=== PATIENT | female | born 1945 | race Caucasian/White ===

== ENCOUNTER 2017-02-26 08:49 | Outpatient (CLI) | payer MEDICARE ==
[~2017-02-26] VITALS: Ht 165.1 cm; Wt 46.8 kg
[~2017-02-26 08:49] MED LIST: FUROSEMIDE20 MG PO; HYDROCODONE-APA1 TAB PO; K-TAB10 MEQ PO; KLONOPIN0.5 MG PO; LEVOTHYROXINE100 MCG PO; ROBAXIN500 MG PO; SOMA250 MG PO; TIROSINT88 MCG PO
[2017-02-26] MEDS ORDERED: CATAPRES0.1 MG PO (10:11)
[2017-02-26 10:17] LABS: BASOPHILS 1.7 % (0.0-2.0); EOSINOPHILS 2.3 % (0-7); HEMATOCRIT 36.8 % (36.0-48.0); HEMOGLOBIN 11.5 g/dL (12-16); MCH 31.1 pg (26.0-34.0); MCHC 31.3 g/dL (31.0-37.0); MCV 99.5 fL (80.0-100.0); MEAN PLATELET VOLUME 8.7 fL (7.4-10.4); MONOCYTES 9.6 % (2-11); NEUTROPHILS 54.4 % (40-80); RDW 12.9 % (11.5-14.5)
[2017-02-26 10:21] VITALS: BP 183/84; Ht 165.1 cm; Wt 46.8 kg
[2017-02-26 10:30] LABS: PLATELET COUNT 255 10x3/uL (130-400)
[2017-02-26 10:31] LABS: ANION GAP 9.3 mmol/L (8-16); CALCIUM 9.1 mg/dL (8.5-10.1); CARBON DIOXIDE 32.4 mmol/L (21.0-32.0); CREATININE - SERUM 0.8 mg/dL (0.6-1.3); POTASSIUM - SERUM 4.7 mmol/L (3.5-5.1)
[2017-02-26 10:33] LABS: APTT 33.7 SECONDS (22.8-39.4); INR 1.13 (0.85-1.17); PROTIME 14.4 SECONDS (11.6-15.0)
--- NOTE | 2017-02-26 12:05 | NUR ---
1200-RECD FROM INTERVENTIONAL RADIOLOGY. AROUSES EASILY. IV PATENT. L HIP DRESSING DRY AND INTACT. DENIES PAIN. RESP WITH EASE.
--- NOTE | 2017-02-26 17:48 | NUR ---
1300 REPORT TO FRANK RAYMOND RN, CARE TURNED OVER TO HER AT THIS TIME.
== END 2017-02-26 13:35 | disposition home or self-care (01) ==
LOC: D.OPS 08:49 → D.CT 11:00 → D.OPS 13:35
PROVIDERS: General Practice
DX: D72.819 Decreased white blood cell count, unspecified (principal); M15.9 Polyosteoarthritis, unspecified; E03.9 Hypothyroidism, unspecified

== ENCOUNTER 2017-12-10 18:19 | Inpatient (IN) | payer MEDICARE ==
[~2017-12-10] VITALS: Ht 165.1 cm; Wt 47.7 kg
--- NOTE | ~2017-12-10 | PN ---
PATIENT:ROB PICKENS MEDICAL RECORD: [id number] LOCATION:[place] Mendez112 ADMISSION DATE: 12/10/17 PROGRESS NOTE DATE OF SERVICE: 12/12/2017 SUBJECTIVE: The patient's case was discussed with staff. She has no new complaint. OBJECTIVE: The patient is in good behavioral control with limited insight about her condition. She complains of back pain. ASSESSMENT: No change in diagnoses. PLAN: Current medicines and therapies have been reviewed. Her long-term prognosis is guarded. TRANSINT:[id number] Voice Confirmation ID: [id number] DOCUMENT ID: [id number] BETSY BURGER MD at 1338 CC: [id number] DICTATION DATE: 12/12/17 1313 ENDOCRINOLOGIST: 12/12/17 1332 ADM IN [place] [address] [place] [address]
--- NOTE | ~2017-12-10 | PN ---
PATIENT:ROB PICKENS MEDICAL RECORD: [id number] LOCATION:[facility] Mendez112 ADMISSION DATE: 12/10/17 PROGRESS NOTE DATE OF SERVICE: 12/23/2017 SUBJECTIVE: No new complaint. OBJECTIVE: The patient is doing considerably better. Due to her improvement in orientation and responsiveness, she will be retested by Dr. Bob today. On exam, mood is euthymic. Affect is appropriate. Speech is fairly fluent. Content of thought unchanged. Sensorium unchanged. ASSESSMENT: No change in diagnosis. PLAN: 1. Continue current medication. 2. Continue supportive therapy. TRANSINT:[id number] Voice Confirmation ID: [id number] DOCUMENT ID: [id number] NOÉ WESTBROOK III, MD at 0657 CC: [id number] DICTATION DATE: 12/23/17 1136 PLANT AND INSTRUMENT ENGINEER: 12/23/17 1158 ADM IN [place] [id number] [place] [id number]
--- NOTE | ~2017-12-10 | PSY ---
PATIENT NAME:ROB PICKENS MEDICAL RECORD: [id number] : 41 LOCATION:[place] Andrea1124 ADMISSION DATE: 12/10/17 ACCOUNT: [id number] PSYCHIATRIC EVALUATION DATE OF EVALUATION: 12/11/17 INITIAL PSYCHIATRIC WORKUP IDENTIFYING DATA: This is the first Half-Way admission and probably the first psychiatric hospitalization for this 72-year-old single white female. HISTORY OF PRESENT ILLNESS: This patient was transferred here from the [facility]. The patient had recently, according to her daughter, been showing markedly worsened depression and anxiety. On exam today, the patient states that she has several things that bother her. She begins by stating that there have been some changes at her work that have left her flustered and confused. She also mentions that her daughter has moved in with her. The patient evidently works at [employer], but her hours are being restricted (this is based solely on the information the patient gave me). The patient has a past history of CVA and does have some cognitive deficits according to history. Because of worsening depression and anxiety, the patient is now admitted. PAST MEDICAL HISTORY: Significant for cerebrovascular accident in the past. The patient also has an old history of osteoarthritis, cardiac arrhythmias, hypertension, and hypothyroidism. MEDICATION: At the time of admission included levothyroxine 100 mcg daily (this was decreased to 75 mcg daily after admission). Also, vitamin D supplements, potassium replacement, Lasix 20 mg daily, and p.r.n. benzodiazepines. FAMILY HISTORY: Noncontributory. SOCIAL HISTORY: The patient is a former smoker. She does not have a history of substance abuse or alcohol difficulties. She is a . She has 2 children, 1 of her daughter lives with her. She worked in the past in an accounting department at a local business. She says she has worked for [employer] for the last 26 years. ALLERGIES: INCLUDE SYNTHROID (NOT LEVOTHYROXINE) AND PENICILLIN DERIVATIVES. MENTAL STATUS: On interview, the patient is very pleasant and charming. She is extremely polite during the course of the interview. She makes good eye contact. Mood is slightly anxious and worried. Affect is somewhat constricted. Speech is slow in production and rate, but otherwise fluent. Content of thought is negative for suicidal ideation or psychosis. On sensorium testing, the patient is oriented to person and place. She correctly identifies the month, but is little unsure of the exact date. She knows that today is . Remote recall appears to be intact. Intermediate and short-term recall does show some deficits. DIAGNOSTIC IMPRESSION: AXIS I: Probable early vascular dementia with secondary depressive features and anxiety. AXIS II: No diagnosis. AXIS III: History of cerebrovascular accident, hypothyroidism, hypertension, and osteoarthritis. AXIS IV: Moderate. AXIS V: 34. PLAN: 1. The patient is admitted for further medical and psychiatric workup. 2. Diet and activities as tolerated. 3. Coordinated with the patient and with family regarding aftercare at the time of discharge. TRANSINT:[id number] Voice Confirmation ID: [id number] DOCUMENT ID: [id number] NOÉ WESTBROOK III, MD at 1506 CC: [id number] DICTATION DATE: 12/11/17 1133 FOREIGN EXCHANGE CLERK: 12/11/17 1159 ADM IN [facility] [address] [place] [id number]
--- NOTE | ~2017-12-10 | PN ---
PATIENT:ROB PICKENS MEDICAL RECORD: [id number] LOCATION:[place] Mendez112 ADMISSION DATE: 12/10/17 PROGRESS NOTE DATE OF SERVICE: 12/22/2017 SUBJECTIVE: The patient is showing significant improvement. This morning, she was eating breakfast well. She is interacting much better with staff. On exam, the patient's mood was pleasant. Affect was more appropriate and congenial. Speech is more fluent. Content of thought is negative for overt psychosis or suicidality. On sensorium testing, the patient was oriented to time, place and person. ASSESSMENT: No change in diagnosis. PLAN: 1. Maintain Lexapro 10 mg daily. 2. Continue other medications. 3. Continue supportive therapy. TRANSINT:[id number] Voice Confirmation ID: [id number] DOCUMENT ID: [id number] NOÉ WESTBROOK III, MD at 0632 CC: [id number] DICTATION DATE: 12/22/17 0935 SCREW CUTTER: 12/22/17 1157 ADM IN [place] [id number] [place] [id number]
--- NOTE | ~2017-12-10 | PN ---
PATIENT:ROB PICKENS MEDICAL RECORD: [id number] LOCATION:[place] Cosby ADMISSION DATE: 12/10/17 PROGRESS NOTE DATE OF SERVICE: 12/20/2017 SUBJECTIVE: No new complaint. OBJECTIVE: The patient continues to appear sedated. She is slow to respond to staff. She is taking her medications as prescribed, but oral intake remains poor. On exam, mood is dysphoric. Affect is very constricted. Speech is minimal. Content of thought focuses on somatic concerns. Sensorium continues to show profound deficits as described above. PRIMARY DIAGNOSIS: Changed Alzheimer's dementia. SECONDARY DIAGNOSIS: Depression. PLAN: 1. We will discontinue Klonopin. 2. Reduce Lexapro to 10 mg daily. 3. Maintain other medications and close observation as well as supportive therapy. TRANSINT:[id number] Voice Confirmation ID: [id number] DOCUMENT ID: [id number] NOÉ WESTBROOK III, MD at 0848 CC: [id number] DICTATION DATE: 12/20/17 0805 USED CAR SALESPERSON: 12/20/17 1313 ADM IN [facility] [address] [place] [id number]
--- NOTE | ~2017-12-10 | PN ---
PATIENT:ROB PICKENS MEDICAL RECORD: [id number] LOCATION:[place] Mendez112 ADMISSION DATE: 12/10/17 PROGRESS NOTE DATE OF SERVICE: 12/19/2017 SUBJECTIVE: No new complaint. OBJECTIVE: The patient has appeared somewhat sedated. Klonopin will be reduced. Staff has been in communication with the daughter regarding her recommendations. On exam, mood is for the most part euthymic. Affect is very reserved. Speech is low in volume and slow in production and rate. Content of thought focuses on somatic concerns. Sensorium is unchanged. ASSESSMENT: No change in diagnosis. PLAN: 1. Continue present medications. 2. Continue supportive therapy. TRANSINT:[id number] Voice Confirmation ID: [id number] DOCUMENT ID: [id number] NOÉ WESTBROOK III, MD at 0727 CC: [id number] DICTATION DATE: 12/19/17 1105 SHIPYARD PAINTING SUPERVISOR: 12/19/17 1126 ADM IN [place] [address] [place] [address]
--- NOTE | ~2017-12-10 | PN ---
PATIENT:ROB PICKENS MEDICAL RECORD: [id number] LOCATION:TOD[place]ank Mendez112 ADMISSION DATE: 12/10/17 PROGRESS NOTE DATE OF SERVICE: 12/15/2017 SUBJECTIVE: The patient states that she still does not feel very energetic. OBJECTIVE: The patient has had very poor oral intake. She has been started on Megace and is taking this on a routine basis. Depressive symptoms remain prominent. On exam, mood is dysphoric. Affect constricted. Speech is low in volume. Content of thought is negative for overt psychosis. Sensorium shows no change. ASSESSMENT: No change in diagnosis. PLAN: 1. We will advance Lexapro to 20 mg daily. 2. Neuropsychological testing. 3. Continue supportive therapy. TRANSINT:[id number] Voice Confirmation ID: [id number] DOCUMENT ID: [id number] NOÉ WESTBROOK III, MD at 1002 CC: [id number] DICTATION DATE: 12/15/17 1115 FUNERAL CAR CHAUFFEUR: 12/15/17 1349 ADM IN [place] [id number] [place] [id number]
--- NOTE | ~2017-12-10 | PN ---
PATIENT:ROB PICKENS MEDICAL RECORD: [id number] LOCATION:[place] Mendez112 ADMISSION DATE: 12/10/17 PROGRESS NOTE DATE OF SERVICE: 12/25/2017 SUBJECTIVE: The patient's case was discussed with staff. She has no new complaint. OBJECTIVE: The patient denies intent to harm herself or others. She tolerates her medicines well. ASSESSMENT: No change in diagnoses. PLAN: Current medicines and therapies have been reviewed and will be maintained. Long-term prognosis is guarded. TRANSINT:[id number] Voice Confirmation ID: [id number] DOCUMENT ID: [id number] BETSY BURGER MD at 1024 CC: [id number] DICTATION DATE: 12/25/17 1036 HAY CHOPPER: 12/25/17 1113 DIS IN 12/25/17 [facility] [address] [place] [address]
--- NOTE | ~2017-12-10 | PN ---
PATIENT:ROB PICKENS MEDICAL RECORD: [id number] LOCATION:[place] Mendez112 ADMISSION DATE: 12/10/17 PROGRESS NOTE DATE OF SERVICE: 12/13/2017 SUBJECTIVE: The patient continues to complain of nervousness. OBJECTIVE: On interview, the patient is pleasant, but affect is very reserved. Mood is slightly anxious. Speech is low in volume. Content of thought tends to focus on somatic concerns. Sensorium shows no change. ASSESSMENT: No change in diagnosis. PLAN: 1. We will institute routine Klonopin. 2. We will get neuropsychological testing with Dr. Bob. 3. Continue supportive therapy. TRANSINT:[id number] Voice Confirmation ID: [id number] DOCUMENT ID: [id number] NOÉ WESTBROOK III, MD at 1830 CC: [id number] DICTATION DATE: 12/13/17 1144 FORENSIC DOCUMENT EXAMINER: 12/13/17 1600 ADM IN [facility] [address] [place] [address]
--- NOTE | ~2017-12-10 | PN ---
PATIENT:ROB PICKENS MEDICAL RECORD: [id number] LOCATION:[place] Mendez112 ADMISSION DATE: 12/10/17 PROGRESS NOTE DATE OF SERVICE: 12/17/2017 SUBJECTIVE: No new complaint. OBJECTIVE: The patient is slightly more alert today. She did undergo neuropsychological testing with Dr. Bob. She scored only 5/30 on the [facility] Mental Status exam, which indicates a very profound and severe dementia. The patient's daughter did talk with staff and asked whether the patient should continue to be allowed to drive and to work at [facility] [employer]. Based on current observation and testing, the answer is definitely no. In addition, the daughter shared the fact that the patient had been taking probably excessive amounts of narcotics prior to admission. The patient will be monitored for withdrawal. On exam, mood is dysphoric. Affect is rather constricted. Speech tends to be low in volume. Content of thought focuses primarily on somatic concerns. Sensorium shows no change. ASSESSMENT: No change in diagnosis. PLAN: 1. Maintain current medication. 2. Continue supportive therapy. TRANSINT:[id number] Voice Confirmation ID: [id number] DOCUMENT ID: [id number] NOÉ WESTBROOK III, MD at 1045 CC: [id number] DICTATION DATE: 12/17/171126 PURCHASING SUPERVISOR: 12/17/17 1337 ADM IN [place] [id number] [place] [id number]
--- NOTE | ~2017-12-10 | PN ---
PATIENT:ROB PICKENS MEDICAL RECORD: [id number] LOCATION:[place] Mendez112 ADMISSION DATE: 12/10/17 PROGRESS NOTE DATE OF SERVICE: 12/18/2017 SUBJECTIVE: No new complaint. OBJECTIVE: As mentioned, the patient had done very poorly on the [facility] Mental Status exam scoring 5 out of a possible 30. The patient was informed today that she should not drive nor attempt to return to work under the circumstances. Family is concerned about her excessive use of [place]. She will be changed to tramadol. On exam, mood is dysphoric. Affect is reserved and constricted. Speech is slow in rate. Content of thought is negative for overt psychosis. Sensorium shows no change. ASSESSMENT: AXIS I: Alzheimer dementia, secondary depression. AXIS II: No diagnosis. PLAN: 1. Continue all current medications. 2. Continue supportive therapy. TRANSINT:[id number] Voice Confirmation ID: [id number] DOCUMENT ID: [id number] NOÉ WESTBROOK III, MD at 0510 CC: [id number] DICTATION DATE: 12/18/17 1151 STORES NAVAL: 12/18/17 [address] [facility] [address] [place] [address]
--- NOTE | ~2017-12-10 | PN ---
PATIENT:ROB PICKENS MEDICAL RECORD: [id number] LOCATION:[place] Mendez112 ADMISSION DATE: 12/10/17 PROGRESS NOTE DATE OF SERVICE: 12/16/2017 SUBJECTIVE: No new complaint. OBJECTIVE: The patient is undergoing testing with Dr. Bob today. She has been taking medication as prescribed. She is eating better. On exam, mood remains dysphoric. Affect is constricted. Speech is fairly fluent. Content of thought unchanged. Sensorium unchanged. ASSESSMENT: No change in diagnosis. PLAN: 1. Maintain current medication. 2. Continue supportive therapy. TRANSINT:[id number] Voice Confirmation ID: [id number] DOCUMENT ID: [id number] NOÉ WESTBROOK III, MD at 1013 CC: [id number] DICTATION DATE: 12/16/17 1059 COMB MACHINE OPERATOR: 12/16/17 1240 ADM IN [place] [address] [place] [id number]
--- NOTE | ~2017-12-10 | PN ---
PATIENT:ROB PICKENS MEDICAL RECORD: [id number] LOCATION:[place] Mendez112 ADMISSION DATE: 12/10/17 PROGRESS NOTE DATE OF SERVICE: 12/24/2017 SUBJECTIVE: The patient's case was discussed with staff. She has no new complaint. OBJECTIVE: The patient denies intent to harm herself or others. She generally tolerates her medicines well. Eye contact is fair. ASSESSMENT: No change in diagnoses. PLAN: Current medicines have been reviewed and will be maintained. Long-term prognosis is guarded. TRANSINT:[id number] Voice Confirmation ID: [id number] DOCUMENT ID: [id number] BETSY BURGER MD at 1024 CC: [id number] DICTATION DATE: 12/24/17 1501 THEATRE DIRECTOR: 12/24/17 1524 DIS IN 12/25/17 [facility] [address] [place] [address]
[~2017-12-10 18:19] MED LIST changes: +CATAPRES0.1 MG PO
[2017-12-10] MEDS ORDERED: KLONOPIN0.5 MG PO (18:29)
[2017-12-10] MEDS ORDERED: HYDROCODONE-APA1 TAB PO (18:30)
[2017-12-10 19:18] VITALS: BMI 17.5
[2017-12-11 05:52] LABS: BASOPHILS 0.3 % (0-2); EOSINOPHILS 3.5 % (0-7); HEMATOCRIT 35.5 % (36.0-48.0); LYMPHOCYTES 36.5 % (15-50); MCH 31.5 pg (26.0-34.0); MCV 101.7 fL (80.0-100.0); MEAN PLATELET VOLUME 9.6 fL (7.4-10.4); MONOCYTES 13.8 % (2-11); NEUTROPHILS 45.9 % (40-80); RBC 3.49 10x6/uL (4.00-5.40); RDW 13.2 % (11.5-14.5); WBC 3.2 10x3/uL (4.8-10.8)
[2017-12-11 05:54] LABS: PLATELET COUNT 135 10x3/uL (130-400)
[2017-12-11 06:08] LABS: ALBUMIN 3.1 g/dL (3.4-5.0); ALKALINE PHOSPHATASE 59 U/L (46-116); ALT (SGPT) 12 U/L (10-68); BILIRUBIN - TOTAL 0.55 mg/dL (0.2-1.3); CALC OSMOLALITY 284 mosm/kg (275-300); CALCIUM 8.7 mg/dL (8.5-10.1); CARBON DIOXIDE 33.5 mmol/L (21.0-32.0); CHLORIDE - SERUM 107 mmol/L (98-107); CHOL - HDL RATIO 2.5 ratio (2.3-4.1); CHOLESTEROL, TOTAL 137 mg/dL (0-200); CREATININE - SERUM 0.7 mg/dL (0.6-1.3); GLUCOSE 105 mg/dL (74-106); HDL CHOLESTEROL 56 mg/dL (32-96); HEMOGLOBIN A1C 5.5 % (4.8-6.0); LDL CHOLESTEROL 75 mg/dL (0-100); LDL-HDL RATIO 1.3 ratio (1.5-3.5); SODIUM 144 mmol/L (136-145); THYROID STIMULATING HORMONE 0.12 uIU/mL (0.36-3.74); TRIGLYCERIDE 34 mg/dL (30-200); UREA NITROGEN 8 mg/dL (7-18); eGFR NON AFRICAN AMERICAN 87 mL/min (90-120)
[2017-12-11 08:30] VITALS: BP 190/089
[2017-12-11 10:47] VITALS: BMI 17.4
[2017-12-11 19:30] VITALS: BP 172/87
[2017-12-12 07:30] LABS: RAPID PLASMA REAGIN Non Reactive (Non Reactive); VITAMIN D 25 HYDROXY 34.2 ng/mL (30.0-100.0)
[2017-12-12 08:07] VITALS: Ht 165.1 cm; Wt 47.7 kg
[2017-12-12 09:18] LABS: FOLATE (FOLIC ACID) - SERUM 12.4 ng/mL (>3.0)
[2017-12-12 10:40] VITALS: BP 152/82
[2017-12-12] MEDS ORDERED: FORTEO PEN20 MCG SQ (13:49)
[2017-12-12 20:15] VITALS: BP 176/083
[2017-12-13 07:43] VITALS: BP 139/84
[2017-12-13 19:30] VITALS: BP 129/73
[2017-12-14 08:30] VITALS: BP 142/079
[2017-12-14 19:30] VITALS: BP 138/80
[2017-12-15 08:46] VITALS: BP 124/67
[2017-12-15 12:17] LABS: APPEARANCE CLEAR (CLEAR); BILIRUBIN NEGATIVE (NEGATIVE); COLOR YELLOW (YELLOW); GLUCOSE NEGATIVE (NEGATIVE); KETONE NEGATIVE (NEGATIVE); NITRITE NEGATIVE (NEGATIVE); PROTEIN TRACE mg/dL (NEGATIVE); SPECIFIC GRAVITY 1.015 (1.005-1.020)
[2017-12-15 12:20] LABS: BACTERIA MODERATE /hpf (NONE SEEN); EPITHELIAL CELLS 0-5 /hpf (0-5); GRANULAR CAST RARE /lpf (NONE SEEN); MUCUS <1+ /lpf (NONE SEEN); RED CELLS - URINE 0-5 /hpf (0-5); WHITE CELLS - URINE 0-5 /hpf (0-5)
[2017-12-15 19:54] VITALS: BP 154/63
[2017-12-16 08:00] VITALS: BP 132/83
[2017-12-16 21:23] VITALS: BP 144/66
[2017-12-17 08:00] VITALS: BP 116/74
[2017-12-17 19:30] VITALS: BP 136/53
[2017-12-18 10:00] VITALS: BP 132/63
[2017-12-18 19:43] VITALS: BP 130/60
[2017-12-19 09:50] VITALS: BP 124/46
[2017-12-19 19:44] VITALS: BP 128/73
[2017-12-20 10:17] VITALS: BP 132/56
[2017-12-20 19:27] VITALS: BP 140/53
[2017-12-21 07:00] VITALS: BP 148/73
[2017-12-21 21:00] VITALS: BP 130/60
[2017-12-22 07:00] VITALS: BP 140/72
[2017-12-22 20:56] VITALS: BP 114/39
[2017-12-23 10:02] VITALS: BP 122/59
[2017-12-23 19:58] VITALS: BP 129/57
[2017-12-24 10:09] VITALS: BP 111/50
[2017-12-24] MEDS ORDERED: ACETAMINOPHEN325 MG PO (14:43)
[2017-12-24] MEDS ORDERED: MEGACE ES625 MG/5 M PO (14:43)
[2017-12-24] MEDS ORDERED: LEXAPRO10 MG PO (14:43)
[2017-12-24] MEDS ORDERED: CARAFATE1 G/10 ML PO (14:45)
[2017-12-24] MEDS ORDERED: SYNTHROID75 MCG PO (14:45)
[2017-12-24] MEDS ORDERED: PEPCID20 MG PO (14:45)
[2017-12-24] MEDS ORDERED: VITAMIN D31000 UNI2 PO (14:45)
[2017-12-24] MEDS ORDERED: LIDODERM 5 %1 PATCH TRANSDERM (14:46)
[2017-12-24 19:59] VITALS: BP 121/58
[2017-12-25 10:22] VITALS: BP 110/64
== END 2017-12-25 13:10 | disposition home or self-care (01) | DRG 57 ==
LOC: D.PSYCH 18:19
PROVIDERS: Psychiatry & Neurology Psychiatry
DX: I69.919 Unspecified symptoms and signs involving cognitive functions following unspecified cerebrovascular disease (principal); F01.51 Vascular dementia, unspecified severity, with behavioral disturbance; Z68.1 Body mass index [BMI] 19.9 or less, adult; F32.9 Major depressive disorder, single episode, unspecified; F41.9 Anxiety disorder, unspecified; M19.90 Unspecified osteoarthritis, unspecified site; M54.5 Low back pain; E03.9 Hypothyroidism, unspecified; I10 Essential (primary) hypertension; M81.0 Age-related osteoporosis without current pathological fracture; K21.9 Gastro-esophageal reflux disease without esophagitis; R63.0 Anorexia

== ENCOUNTER → 2020-07-04 13:18 | Outpatient (CLI) | payer MEDICARE ==
[2017-12-12 08:07] VITALS: BMI 17.5
--- NOTE | ~2020-07-04 | EC ---
PATIENT:ROB PICKENS DATE OF SERVICE: 07/04/20 SEX: F MEDICAL RECORD: [id number] DATE OF : 41 [facility] AGE OF PATIENT: 74 ADMISSION DATE: 07/04/20 REFERRING PHYSICIAN: INTERPRETING PHYSICIAN: JAIR PULLIAM MD ECHOCARDIOGRAM REPORT ECHO CHARGES 4 ECHO COMPLETE Date: 07/04/20 CLINICAL DIAGNOSIS: MURMUR/AORTIC STENOSIS ECHOCARDIOGRAPHIC MEASUREMENTS (adult normal given) AC root (d.<3.7cm) 2.7 cm LV Septum d (<1.2 cm> 1.3 cm Valve Excursion 1.0 cm LV Septum (systole) 1.6 cm Left Atria (s.<4.0cm> 4.1 cm LVPW d(<1.2cm) 1.4 cm RV (d.<2.3cm) 4.1 cm LVPW (sytole) 1.6 cm LV diastole(<5.6CM) 5.2 cm MV E-F(>70mm/sec) cm LV systole 3.5 cm LVOT Diameter 1.5 cm MV exc.(>10mm) 0.80 cm Est.ejection fraction (50-75%) % DOPPLER: LVIT cm/sec A 129.0cm/sec E 121.0 cm/sec LA cm/sec RVSP 32 mmHg LVOT 149 cm/sec AOP1/2T m/s Asc. Ao 323 cm/sec RVOT 89 cm/sec RA cm/sec PA 160 cm/sec AV Gradient Peak 41.79mmHg AV Mean 23.16mmHg AV Area 0.80 cm MV Gradient Peak 9.07 mmHg MV Mean 3.42 mmHg MV Area cm COMMENTS: Costume Shop Manager: 2 VALE ZENDEJAS Import Coordination And Production Head: 3 Dr. Díaz TAPE# PACS Pericardial Effusion N DATE OF SERVICE: Adequate 2D, color flow imaging, spectral Doppler, and M-mode. Mild LVH is present. LV internal dimension is normal. Wall motion is normal. EF is greater than or equal to 55%. Aortic valve is calcified with restriction of leaflet motion. Peak gradient of 41 mmHg, putting this in a moderate range. Mild AI is present as well. Left atrium is normal to mildly dilated at 4.1 cm. Mitral valve shows no prolapse. Mild MR. Right-sided chambers are grossly normal. Mild TR. ECHOCARDIOGRAM REPORT [id number] ROB PICKENS NTS:[id number] Voice Confirmation ID: [id number] DOCUMENT ID: [id number] JAIR PULLIAM MD CC: [id number] DICTATION DATE: 07/06/20 1321 PURCHASING CONTRACTING CLERK: 07/06/202012 DEP CLI 07/04/20 [place] [id number] [place] [address]
[~2020-07-04 13:18] MED LIST changes: +ACETAMINOPHEN325 MG PO; +CARAFATE1 G/10 ML PO; +FORTEO PEN20 MCG SQ; +LEXAPRO10 MG PO; +LIDODERM 5 %1 PATCH TRANSDERM; +MEGACE ES625 MG/5 M PO; +PEPCID20 MG PO; +SYNTHROID75 MCG PO; +VITAMIN D31000 UNI2 PO
== END | disposition home or self-care (01) ==
LOC: D.HCCECHO 05-29 14:30
PROVIDERS: ATTEND Internal Medicine Interventional Cardiology
DX: I35.0 Nonrheumatic aortic (valve) stenosis (principal)

== ENCOUNTER → 2021-01-16 09:55 | Outpatient (CLI) | payer MEDICARE ==
[2017-12-12 08:07] VITALS: BMI 17.5
--- NOTE | 2021-01-17 09:45 | EC ---
PATIENT:ROB PICKENS DATE OF SERVICE: 01/16/21 SEX: F MEDICAL RECORD: [id number] DATE OF : 41 [facility] AGE OF PATIENT: 75 ADMISSION DATE: 01/16/21 REFERRING PHYSICIAN: INTERPRETING PHYSICIAN: JAIR PULLIAM MD ECHOCARDIOGRAM REPORT ECHO CHARGES 4 ECHO COMPLETE Date: 01/16/21 CLINICAL DIAGNOSIS: AORITIC STENOSIS, HEART MURMUR ECHOCARDIOGRAPHIC MEASUREMENTS (adult normal given) AC root (d.<3.7cm) 2.8 cm LV Septum d (<1.2 cm> 0.9 cm Valve Excursion 0.9 cm LV Septum (systole) 1.1 cm Left Atria (s.<4.0cm> 4.5 cm LVPW d(<1.2cm) 0.9 cm RV (d.<2.3cm) 4.3 cm LVPW (sytole) 1.4 cm LV diastole(<5.6CM) 5.0 cm MV E-F(>70mm/sec) cm LV systole 3.5 cm LVOT Diameter 1.6 cm MV exc.(>10mm) 1.1 cm Est.ejection fraction (50-75%) % DOPPLER: LVIT cm/sec A 111.0cm/sec E 123.0 cm/sec LA cm/sec RVSP 37 mmHg LVOT 136 cm/sec AOP1/2T m/s Asc. Ao 343 cm/sec RVOT cm/sec RA cm/sec PA 184 cm/sec AV Gradient Peak 46.94mmHg AV Mean 28.90mmHg AV Area 0.80 cm MV Gradient Peak 10.54mmHg MV Mean 3.36 mmHg MV Area cm COMMENTS: Laborer Tin Can: 2 VALE ZENDEJAS Garment Folder: 3 Dr. Díaz TAPE# PACS Pericardial Effusion N DATE OF SERVICE: Adequate 2D, color-flow imaging, spectral Doppler, and M-Mode FINDINGS: LVH is present. LV internal dimensions are normal. Wall motion is normal. EF is greater than or equal to 55%. Aortic valve is calcified with restriction of leaflet motion. Peak gradient 46 mmHg putting this in moderate approaching severe range. Left atrium is mildly dilated at 4.5 cm. Mitral valve is thickened. Mild MR. Right side is grossly normal. Trace TR. ECHOCARDIOGRAM REPORT [id number] ROB PICKENS TRANSINT:[id number] Voice Confirmation ID: [id number] DOCUMENT ID: [id number] JAIR PULLIAM MD at 0945 CC: [id number] DICTATION DATE: 01/16/21 1430 REFRIGERATION SPECIALIST: 01/16/212149 DEP CLI 01/16/21 [facility] [address] [place] [id number]
== END | disposition home or self-care (01) ==
LOC: D.HCCECHO 09:55
PROVIDERS: ATTEND Internal Medicine Interventional Cardiology
DX: I35.0 Nonrheumatic aortic (valve) stenosis (principal)

== ENCOUNTER 2021-05-12 19:14 | Observation (INO) | payer MEDICARE ==
[~2021-05-12] VITALS: Ht 165.1 cm; Wt 49.0 kg
[2021-05-12 19:15] VITALS: BP 156/64
[2021-05-12 20:55] LABS: BASOPHILS 0.7 % (0-2); EOSINOPHILS 1.3 % (0-7); HEMOGLOBIN 11.3 g/dL (12-16); LYMPHOCYTES 25.6 % (15-50); MCH 31.8 pg (26.0-34.0); MCHC 32.4 g/dL (31.0-37.0); MCV 98.4 fL (80.0-100.0); MEAN PLATELET VOLUME 6.9 fL (7.4-10.4); MONOCYTES 7.6 % (2-11); NEUTROPHILS 64.8 % (40-80); RBC 3.55 10x6/uL (4.00-5.40); RDW 15.4 % (11.5-14.5); WBC 4.8 10x3/uL (4.8-10.8)
[2021-05-12 21:01] LABS: APTT 33.6 SECONDS (22.8-39.4); INR 1.16 (0.85-1.17); PROTIME 13.7 SECONDS (11.6-15.0)
[2021-05-12 21:02] LABS: PLATELET COUNT 170 10x3/uL (130-400)
[2021-05-12 21:08] LABS: ANION GAP 12.1 mmol/L (8-16); CALCIUM 8.7 mg/dL (8.5-10.1); CARBON DIOXIDE 29.2 mmol/L (21.0-32.0); POTASSIUM - SERUM 3.3 mmol/L (3.5-5.1)
[2021-05-12 21:27] LABS: ALBUMIN 3.7 g/dL (3.4-5.0); BILIRUBIN - TOTAL 0.41 mg/dL (0.2-1.3); MAGNESIUM - SERUM 1.9 mg/dL (1.8-2.4); PROTEIN - SERUM 6.5 g/dL (6.4-8.2); THYROID STIMULATING HORMONE 44.92 uIU/mL (0.36-3.74); TROPONIN-I 0.017 ng/mL (0.000-0.060)
[2021-05-12 22:18] VITALS: BP 202/81
--- NOTE | 2021-05-12 22:34 | NUR ---
pt report given to April. pt going to room 2789
--- NOTE | 2021-05-12 23:00 | NUR ---
ADMIT TO ROOM 2136 FROM ER. ALERT/ORIENTED. ADMISSION ASSESSMENT AND HISTORY COMPLETED. PT GIVEN SANDWICH TRAY AND DRINK. IVF NS @ 125ML/HR INFUSING TO LFA. REVIEW PLAN OF CARE. PT NOW EATING. CALL LIGHT IN REACH.
[2021-05-12 23:49] VITALS: BP 197/81; BMI 18.0
[2021-05-13 00:04] LABS: BILIRUBIN NEGATIVE (NEGATIVE); KETONE NEGATIVE mg/dL (< 1+); NITRITE NEGATIVE (NEGATIVE); UROBILINOGEN 2 mg/dL (< 2)
[2021-05-13 00:27] LABS: UDS - AMPHET NEGATIVE QUAL (NEGATIVE); UDS - BARB NEGATIVE QUAL (NEGATIVE); UDS - BENZO NEGATIVE QUAL (NEGATIVE); UDS - COCAINE NEGATIVE QUAL (NEGATIVE); UDS - OPIATE POSITIVE QUAL (NEGATIVE); UDS - PCP NEGATIVE QUAL (NEGATIVE); UDS - THC NEGATIVE QUAL (NEGATIVE)
--- NOTE | 2021-05-13 01:51 | NUR ---
PT WENT TO SLEEP AFTER EATING, WOKE UP AND CAME OUT IN HALLWAY DISORIENTED. RETURNED HER TO HER ROOM AND SHE WENT BACK TO BED. IVF NS INFUSING. NO DISTRESS.
--- NOTE | 2021-05-13 04:00 | NUR ---
PT UP AND INTO HALLWAY, THIS TIME PULLING OUT HER IV AND BLEEDING ALL THE WAY DOWN THE HALLWAY. RETURNED PT TO ROOM AND SITED NEW 22G TO RFA AND IVF NS @ 125ML/HR RESUMMED. ENID MAT IN PLACE. EXPLAINED TO PT THAT SHE MUST CALL FOR ASSISTANCE TO GO TO BATHROOM.
[2021-05-13 05:35] VITALS: BP 182/74
[2021-05-13 07:46] LABS: BASOPHILS 0.9 % (0-2); EOSINOPHILS 1.9 % (0-7); HEMATOCRIT 33.7 % (36.0-48.0); HEMOGLOBIN 10.9 g/dL (12-16); MCHC 32.4 g/dL (31.0-37.0); MCV 98.8 fL (80.0-100.0); MEAN PLATELET VOLUME 7.1 fL (7.4-10.4); MONOCYTES 6.8 % (2-11); NEUTROPHILS 66.4 % (40-80); PLATELET COUNT 157 10x3/uL (130-400); RBC 3.41 10x6/uL (4.00-5.40); RDW 15.5 % (11.5-14.5)
[2021-05-13 08:01] VITALS: BP 178/17
--- NOTE | 2021-05-13 08:07 | NUR ---
PT RECEIVED AWAKE AND ALERT. NO COMPLAINTS. AMBULATED SELF TO BATHROOM WITH IV POLE.
[2021-05-13 08:31] LABS: ALBUMIN 3.2 g/dL (3.4-5.0); BILIRUBIN - TOTAL 0.37 mg/dL (0.2-1.3); CALCIUM 8.1 mg/dL (8.5-10.1); CARBON DIOXIDE 28.3 mmol/L (21.0-32.0); CREATININE - SERUM 0.9 mg/dL (0.6-1.3); MAGNESIUM - SERUM 1.8 mg/dL (1.8-2.4); PHOSPHOROUS 3.5 mg/dL (2.5-4.9); PROTEIN - SERUM 5.7 g/dL (6.4-8.2); T4 THYROXIN - FREE 0.38 ng/dL (0.76-1.46)
[2021-05-13 08:34] LABS: ANION GAP 11.7 mmol/L (8-16)
[2021-05-13 11:02] VITALS: BP 191/67
--- NOTE | 2021-05-13 16:27 | NUR ---
PT WILL NOT STAY IN ROOM. REPEATEDLY COMES OUT TO NURSE STATION OR WALKING AROUND TAVERAS. IV IS DISCONNECTED AT PRESENT DUE TO HER NOT REMEMBERING IT IS ATTACHED WHEN SHE GETS UP AND WE LOSE IV SITE.
--- NOTE | 2021-05-13 20:00 | NUR ---
INITIAL ROUNDS AND ASSESSMENT COMPLETED. PT CONFUSED. COMING OUT OF ROOM AND HEADING RANDOM DIRECTIONS. CAME INTO NURSES STATION AND TOLD NURSE NO ONE HAS FED HER TODAY. WHEN NURSE TRIED TO ASK PATIENT A QUESTION, SHE SAID "FINE, YOU DON'T HAVE TO FEED MY ANYTHING!" CALMED PT DOWN, TOOK HER BACK TO HER ROOM AND GAVE HER A SANDWICH TRAY AND DRINK.
[2021-05-13 20:26] VITALS: BP 152/82
--- NOTE | 2021-05-13 23:00 | NUR ---
BEDTIME MED GIVEN. SPOKE WITH PATIENT ABOUT SHOWERING/PUTTING ON A CLEAN GOWN. SHE IS STILL WEARING HER ADMIT CLOTHING. SHE REFUSES TO LET STAFF ASSIST HER IN GETTING CLEAN. SHE REFUSES TO WEAR A GOWN. IVF INFUSING.
--- NOTE | 2021-05-14 03:53 | NUR ---
PT RESTING WITH EYES CLOSED. NO DISTRESS. CALL LIGHT IN REACH.
[2021-05-14 05:30] VITALS: BP 168/74
[2021-05-14 06:49] LABS: BASOPHILS 0.5 % (0-2); EOSINOPHILS 1.8 % (0-7); HEMATOCRIT 33.7 % (36.0-48.0); HEMOGLOBIN 11.2 g/dL (12-16); LYMPHOCYTES 27.9 % (15-50); MCH 32.4 pg (26.0-34.0); MCHC 33.3 g/dL (31.0-37.0); MCV 97.5 fL (80.0-100.0); MEAN PLATELET VOLUME 7.2 fL (7.4-10.4); MONOCYTES 7.1 % (2-11); NEUTROPHILS 62.7 % (40-80); PLATELET COUNT 165 10x3/uL (130-400); RBC 3.46 10x6/uL (4.00-5.40); RDW 15.2 % (11.5-14.5); WBC 3.8 10x3/uL (4.8-10.8)
[2021-05-14 06:55] LABS: ALBUMIN 3.4 g/dL (3.4-5.0); ANION GAP 10.6 mmol/L (8-16); BILIRUBIN - TOTAL 0.48 mg/dL (0.2-1.3); CALCIUM 8.4 mg/dL (8.5-10.1); CARBON DIOXIDE 28.3 mmol/L (21.0-32.0); CREATININE - SERUM 0.9 mg/dL (0.6-1.3); MAGNESIUM - SERUM 1.8 mg/dL (1.8-2.4); PHOSPHOROUS 3.7 mg/dL (2.5-4.9); POTASSIUM - SERUM 3.9 mmol/L (3.5-5.1); PROTEIN - SERUM 6.2 g/dL (6.4-8.2)
[2021-05-14 09:43] VITALS: BP 181/54
--- NOTE | 2021-05-14 11:33 | NUR ---
PATIENT WALKED 250 FEET WITH MIN ASST WITHOUT ASST DEVICE. PATIENT HAD ONE LOSS OF BALANCE.
[2021-05-14 13:30] VITALS: BP 149/62
[2021-05-14 14:47] VITALS: Ht 165.1 cm; Wt 49.0 kg
[2021-05-14 17:43] VITALS: BP 147/99
[2021-05-14 20:00] VITALS: BP 164/69
[2021-05-15] VITALS: BP 164/67
[2021-05-15 05:52] LABS: BASOPHILS 0.6 % (0-2); EOSINOPHILS 2.2 % (0-7); HEMATOCRIT 33.5 % (36.0-48.0); MCHC 32.8 g/dL (31.0-37.0); MCV 97.6 fL (80.0-100.0); MONOCYTES 8.4 % (2-11); NEUTROPHILS 60.8 % (40-80); PLATELET COUNT 163 10x3/uL (130-400); RBC 3.43 10x6/uL (4.00-5.40); RDW 15.8 % (11.5-14.5); WBC 3.7 10x3/uL (4.8-10.8)
[2021-05-15 06:20] LABS: ALBUMIN 3.3 g/dL (3.4-5.0); ANION GAP 10.4 mmol/L (8-16); BILIRUBIN - TOTAL 0.36 mg/dL (0.2-1.3); CALCIUM 8.4 mg/dL (8.5-10.1); CARBON DIOXIDE 27.2 mmol/L (21.0-32.0); MAGNESIUM - SERUM 1.8 mg/dL (1.8-2.4); PHOSPHOROUS 3.3 mg/dL (2.5-4.9); POTASSIUM - SERUM 3.6 mmol/L (3.5-5.1); PROTEIN - SERUM 5.9 g/dL (6.4-8.2)
[2021-05-15 06:39] VITALS: BP 178/64
[2021-05-15 08:40] VITALS: BP 193/94
[2021-05-15 10:11] LABS: THYROGLOBULIN ANTIBODY <1.0 IU/mL (0.0-0.9); THYROID PEROXIDASE ABS <9 IU/mL (0-34)
[2021-05-15 12:03] VITALS: BP 162/59
--- NOTE | 2021-05-15 16:25 | NUR ---
PATIENT WALKED 250 FEET WITH MIN ASST WITHOUT ASST DEVICE.
--- NOTE | 2021-05-15 19:30 | NUR ---
PT IN BED, EYES CLOSED, RESP EVEN AND UNLABORED, NO DISTRESS NOTED, CL IN REACH, SR UP X 2.
[2021-05-15 20:00] VITALS: BP 145/58
[2021-05-16 04:00] VITALS: BP 169/73
[2021-05-16 07:32] LABS: BASOPHILS 0.8 % (0-2); EOSINOPHILS 1.8 % (0-7); HEMATOCRIT 34.9 % (36.0-48.0); HEMOGLOBIN 11.4 g/dL (12-16); LYMPHOCYTES 26.9 % (15-50); MCHC 32.6 g/dL (31.0-37.0); MEAN PLATELET VOLUME 7.1 fL (7.4-10.4); MONOCYTES 8.4 % (2-11); NEUTROPHILS 62.1 % (40-80); PLATELET COUNT 170 10x3/uL (130-400); RBC 3.56 10x6/uL (4.00-5.40); RDW 15.7 % (11.5-14.5); WBC 3.8 10x3/uL (4.8-10.8)
[2021-05-16 07:50] LABS: ALBUMIN 3.3 g/dL (3.4-5.0); ANION GAP 9.1 mmol/L (8-16); BILIRUBIN - TOTAL 0.42 mg/dL (0.2-1.3); CALCIUM 8.3 mg/dL (8.5-10.1); CREATININE - SERUM 0.9 mg/dL (0.6-1.3); MAGNESIUM - SERUM 1.8 mg/dL (1.8-2.4); PHOSPHOROUS 2.9 mg/dL (2.5-4.9); POTASSIUM - SERUM 4.1 mmol/L (3.5-5.1); PROTEIN - SERUM 6.2 g/dL (6.4-8.2)
[2021-05-16 08:42] VITALS: BP 150/64
--- NOTE | 2021-05-16 10:37 | NUR ---
WALKED 250 FT MIN ASSIT
[2021-05-16 18:12] VITALS: BP 148/58
--- NOTE | 2021-05-16 19:30 | NUR ---
PT UP WONDERING AROUND IN ROOM, PT AWAKE AND CONFUSED, RESP EVEN AND UNLABORED, PT REDIRECTED TO LAY DOWN IN BED, CL IN REACH, SR UP X 2.
[2021-05-16 20:00] VITALS: BP 142/53
[2021-05-17] VITALS (7 sets, daily range): BP systolic 137–168; BP diastolic 50–68
--- NOTE | 2021-05-17 06:30 | NUR ---
RECEIVED BEDSIDE REPORT. PATIENT AWAKE AND ALERT. WITH CONFUSION. ON ROOM AIR. MIDLINE TO RIGHT UPPER ARM SALINE LOCKED. IV TO RIGHT WRIST SALINE LOCKED.
[2021-05-17 06:33] LABS: BASOPHILS 0.7 % (0-2); HEMATOCRIT 33.5 % (36.0-48.0); HEMOGLOBIN 11.5 g/dL (12-16); LYMPHOCYTES 32.1 % (15-50); MCH 33.5 pg (26.0-34.0); MCHC 34.5 g/dL (31.0-37.0); MEAN PLATELET VOLUME 6.9 fL (7.4-10.4); MONOCYTES 8.4 % (2-11); NEUTROPHILS 56.8 % (40-80); PLATELET COUNT 175 10x3/uL (130-400); RBC 3.45 10x6/uL (4.00-5.40); RDW 15.5 % (11.5-14.5); WBC 4.5 10x3/uL (4.8-10.8)
[2021-05-17 06:49] LABS: ALBUMIN 3.4 g/dL (3.4-5.0); ANION GAP 12.6 mmol/L (8-16); BILIRUBIN - TOTAL 0.52 mg/dL (0.2-1.3); CALCIUM 8.2 mg/dL (8.5-10.1); CARBON DIOXIDE 27.2 mmol/L (21.0-32.0); CREATININE - SERUM 0.9 mg/dL (0.6-1.3); MAGNESIUM - SERUM 1.6 mg/dL (1.8-2.4); PHOSPHOROUS 3.3 mg/dL (2.5-4.9); POTASSIUM - SERUM 3.8 mmol/L (3.5-5.1); PROTEIN - SERUM 6.3 g/dL (6.4-8.2)
--- NOTE | 2021-05-17 07:28 | NUR ---
PATIENT AWAKE AND ALERT WITH SOME CONFUSION. CURRENT COMPLAINS OF HEADACHE PRN TYLENOL ADMINISTERD. RESP EVEN AND UNLABORED. CONTINUES ON ROOM AIR. O2 SATS 98. LUNG SOUNDS DIMINISHED IN LOWER LOBES. BOWEL SOUNDS DIMINISHED. HEART SOUNDS REGULAR RATE AND RYTHYM. PATIENT IS FRAIL AND WEAK. IN THE PROCESS OF PLACEMENT.
--- NOTE | 2021-05-17 13:42 | NUR ---
Nutrition Follow-up: Some confusion. Overall fair PO intake. Possible d/c soon. Diet: Low Na, Ensure TID PO intake: 64% avg x 9 meals (05/14-05/16) No new wt; last wt: 108# (05/12) Labs noted: Ca 8.2, Mg 1.6, Alb 3.4 Meds noted: Carafate, Megace, vit D, Protonix, electrolyte protocol -Encourage PO intake and honor food preferences within diet restrictions. -Need new wt. -RD will follow up within 4-5 days.
--- NOTE | 2021-05-17 16:36 | NUR ---
I have reviewed this patient and I concur with the Shift Assessment completed by the Licensed Practical Nurse today this shift.
--- NOTE | 2021-05-17 19:30 | NUR ---
PT IN BED, AWAKE AND CONFUSED, RESP EVEN AND UNLABORED, NO DISTRESS NOTED, CL IN REACH, SR UP X 2.
[2021-05-18 01:51] VITALS: BP 122/76
[2021-05-18 08:07] VITALS: BP 142/68
[2021-05-18 08:52] VITALS: BP 147/66
[2021-05-18 11:14] VITALS: BP 128/50
[2021-05-18 15:58] VITALS: BP 136/60
--- NOTE | 2021-05-18 19:51 | MORECARE ---
CASE MANAGEMENT DISCHARGE SUMMARY PATIENT: ROB PICKENS UNIT: [id number] ADM DATE: 05/12/21 AGE: 75 : 43 SEX: F ROOM/BED: D.2136 AUTHOR: NOEL,DOC PHYSICIAN: REFERRING PHYSICIAN: RYAN YOUNG MD DATE OF SERVICE: 05/18/21 Case Management Discharge Planning Summary COMMENTS ENTERED DATE: 05/18/21 15:19 CT COMMENT TYPE: Discharge Planning REVIEWER: Leigh Smith CM WAS FINALLY ABLE TO REACH PATIENTS SON THROUGH HER DAUGHTER (DYLAN DING). AFTER MULTIPLE ATTEMPTS TO CALL SON (Chon) AT [phone] I HAD DYLAN CALL FROM HER PHONE AND HE ANSWERED. SON GAVE ADDRESS OF [facility] [address] ADDRESS THAT PATIENT IS BEING TAKEN TO. SON RONI MUÑOZ WAS INFORMED THAT PATIENT HAD BEEN READY FOR DISCHARGE SINCE WED 05/16/21 AND NEEDS TO BE PICKED UP TODAY. SON STATED THAT HE WAS IN [facility] AND COULD NOT BE HERE ANY SOONER THAN 05/20/21 AT NOON. SON AND DAUGTHER WERE INFORMED PER PROVIDER THAT APS WOULD BE CALLED AGAIN IF NOT PICKED UP. DCP REVIEW SUMMARY ANTICIPATED D/C DATE: EXPECTED LOS : CASE STATUS: DCP Initiated INITIAL REVIEW: 05/12/2021 INITIAL REVIEWER: Leigh Smith FINAL DISCHARGE DISPOSITION: : FINAL REVIEWER: FINAL REVIEW DATE: DCP Focus Questions & Answers QUESTION: ANSWER : PATIENT: ROB PICKENS ENCOUNTER: [id number] MEDICAL RECORD#: [id number] ADMISSION DATE: 05/12/2021 DISCHARGE DATE: ATTENDING MD: : AGE: 75 MARITAL STATUS: W DC PLAN ID: [id number] FACILITY: [facility] PRINTED ON: 05/18/21 19:51 CT All edits/amendments must be made on the electronic document DICTATION DATE: 05/18/211950 CABLE MACHINE OPERATOR: LAUREN 05/18/211950 RPT#: [id number] DC DATE: STATUS: ADM IN [facility] [address] [place] [address] END OF REPORT
[2021-05-18 20:17] VITALS: BP 152/49
--- NOTE | 2021-05-18 20:26 | NUR ---
Received patient lying in bed with TV on, she ask for a snack at this time. Took her a cup of jello, pudding and a small soda to drink. She denied any pain or discomfort at this time. Takes her meds well without difficulty. Midline patent in left upper arm. Able to transfer self to the bathroom during shift. Very pleasant and cooperative. Call light and fluids with in reach. Will continue her plan of care.
[2021-05-19 01:16] VITALS: BP 159/53
[2021-05-19 05:10] VITALS: BP 169/65
--- NOTE | 2021-05-19 06:20 | NUR ---
I have reviewed this patient and I concur with the Shift Assessment completed by the Licensed Practical Nurse today this shift.
[2021-05-19 08:18] VITALS: BP 170/64
--- NOTE | 2021-05-19 09:26 | NUR ---
AAOX4 UPON ENTERING. ADMINISTERED MEDICATION, NO DIFFICULTIES. RESTING COMFORTABLY IN BED. DENIES ANY NEEDS AT THIS TIME. BED IN LOWEST POSITION, BED RAILS X2, CALL LIGHT WITHIN REACH. WILL CONTINUE POC. ASSESSMENT PERFORMED
[2021-05-19 10:57] VITALS: BP 140/58
--- NOTE | 2021-05-19 11:07 | NUR ---
ADMINISTERED MEDICATION, NO DIFFICULTIES. RESTING COMFORTABLY. DENIES NEEDS. WILL CONTINUE POC.
--- NOTE | 2021-05-19 12:56 | NUR ---
I have reviewed this patient and I concur with the Shift Assessment completed by the Licensed Practical Nurse today this shift.
[2021-05-19 15:25] VITALS: BP 155/67
--- NOTE | 2021-05-19 17:18 | NUR ---
UP RIGHT ON BEDSIDE. ADMINISTERED MEDICATION, PRN TYLENOL FOR PAIN. DENIES FURTHER NEEDS. WILL CONTINUE POC
--- NOTE | 2021-05-19 23:24 | NUR ---
INITIAL ROUNDS COMPLETED AT 1920 HRS. PT RESTING WITH EYES CLOSED. RESP EVEN AND REGULAR. PT REFUSED 1999 VS. ASSESSMENT COMPLETD AT 2024 H RS. PT AWKAES TO VERBAL STIMULI. LUNGS ESSENTIALLY CTA. IV TO RFA SL. ALERT AND ORIENTED TO PERSON, PLACE AND TIME. GUARDADO. PALPABLE PERIPHERAL PULSES. PT DENIED ANY DISCOMFORT. PM MED GIVEN PER ORDERS. PT CURRENTLY RESTIING WITH EYES CLOSED. RESP EVEN AND REGULAR. CALL LIGHT WITHIN REACH.
--- NOTE | 2021-05-20 00:37 | NUR ---
PT RESTING WITH EYES CLOSED. RESP EVEN AND REGULAR. CALL LIGHT WITHIN REACH.
[2021-05-20 01:46] VITALS: BP 144/58
--- NOTE | 2021-05-20 02:21 | NUR ---
PT RESTING WITH EYES CLOSED. RESP EVEN AND REGULAR. CALL LIGHT WTIHIN REACH.
--- NOTE | 2021-05-20 04:15 | NUR ---
PT RESTING WITH EYES CLOSED. RESP EVEN AND REGULAR. CALL LIGHT WITHIN REACH.
[2021-05-20 06:20] VITALS: BP 154/60
--- NOTE | 2021-05-20 06:33 | NUR ---
VSS THROUGHOUT NIGHT. PT STATED SHE RESTED WELL DURNG SHIFT. NEEDS MET; WILL CONTINUE TO MONITOR.
[2021-05-20 07:48] VITALS: BP 149/59
[2021-05-20 09:11] LABS: BASOPHILS 0.8 % (0-2); EOSINOPHILS 2.2 % (0-7); HEMATOCRIT 35.9 % (36.0-48.0); HEMOGLOBIN 11.7 g/dL (12-16); LYMPHOCYTES 25.7 % (15-50); MCH 31.8 pg (26.0-34.0); MCHC 32.5 g/dL (31.0-37.0); MCV 97.7 fL (80.0-100.0); MEAN PLATELET VOLUME 7.2 fL (7.4-10.4); MONOCYTES 8.5 % (2-11); NEUTROPHILS 62.8 % (40-80); PLATELET COUNT 209 10x3/uL (130-400); RBC 3.67 10x6/uL (4.00-5.40); RDW 16.2 % (11.5-14.5); WBC 4.9 10x3/uL (4.8-10.8)
[2021-05-20 09:29] LABS: ALBUMIN 3.4 g/dL (3.4-5.0); ANION GAP 11.6 mmol/L (8-16); BILIRUBIN - TOTAL 0.41 mg/dL (0.2-1.3); CALCIUM 8.5 mg/dL (8.5-10.1); CARBON DIOXIDE 25.6 mmol/L (21.0-32.0); CREATININE - SERUM 1.4 mg/dL (0.6-1.3); POTASSIUM - SERUM 4.2 mmol/L (3.5-5.1); PROTEIN - SERUM 6.4 g/dL (6.4-8.2)
[2021-05-20 10:50] VITALS: BP 130/90
[2021-05-20 16:02] VITALS: BP 139/49
--- NOTE | 2021-05-20 18:49 | MORECARE ---
CASE MANAGEMENT DISCHARGE SUMMARY PATIENT: ROB PICKENS UNIT: [id number] ADM DATE: 05/12/21 AGE: 75 : 43 SEX: F ROOM/BED: D.4706 AUTHOR: NOEL,DOC PHYSICIAN: REFERRING PHYSICIAN: RYAN YOUNG MD DATE OF SERVICE: 05/20/21 Case Management Discharge Planning Summary COMMENTS ENTERED DATE: 05/20/21 18:41 CT COMMENT TYPE: Discharge Planning REVIEWER: Brayan Colmenares CM attempted to speak to patient concerning DCP and needs. Patient is mildly confused and stated that CM should speak with her daughter. CM enlisted the help of patient's daughter (Dylan Ding) to reach the patient's son, Timothy Muñoz [phone] for DCP confirmation of patient's residence. Patient's daughter reports unsuccessful attempts at reaching her brother. Dylan stated that she may have to reach out to her cousin for help but stated that she and her mother cannot return to their previous residence. ENTERED DATE: 05/18/21 15:19 CT COMMENT TYPE: Discharge Planning REVIEWER: Leigh Smith CM WAS FINALLY ABLE TO REACH PATIENTS SON THROUGH HER DAUGHTER (DYLAN DING). AFTER MULTIPLE ATTEMPTS TO CALL SON (Chon) AT [phone] I HAD DYLAN CALL FROM HER PHONE AND HE ANSWERED. SON GAVE ADDRESS OF [facility] [address] ADDRESS THAT PATIENT IS BEING TAKEN TO. SON TIMOHTY MUÑOZ WAS INFORMED THAT PATIENT HAD BEEN READY FOR DISCHARGE SINCE WED 05/16/21 AND NEEDS TO BE PICKED UP TODAY. SON STATED THAT HE WAS IN [facility] AND COULD NOT BE HERE ANY SOONER THAN 05/20/21 AT NOON. SON AND DAUGTHER WERE INFORMED PER PROVIDER THAT APS WOULD BE CALLED AGAIN IF NOT PICKED UP. DCP REVIEW SUMMARY ANTICIPATED D/C DATE: EXPECTED LOS : CASE STATUS: DCP Initiated INITIAL REVIEW: 05/12/2021 INITIAL REVIEWER: Leigh Smith FINAL DISCHARGE DISPOSITION: : FINAL REVIEWER: FINAL REVIEW DATE: DCP Focus Questions & Answers QUESTION: ANSWER : PATIENT: ROB PICKENS ENCOUNTER: [id number] MEDICAL RECORD#: [id number] ADMISSION DATE: 05/12/2021 DISCHARGE DATE: ATTENDING MD: TIM: AGE: 75 MARITAL STATUS: W DC PLAN ID: [id number] FACILITY: [facility] PRINTED ON: 05/20/21 18:49 CT All edits/amendments must be made on the electronic document DICTATION DATE: 05/20/211848 INSTRUCTIONAL TECHNOLOGY SPECIALIST: LAUREN 05/20/211848 RPT#: [id number] DC DATE: STATUS: ADM IN [facility] [address] [place] [address] END OF REPORT
[2021-05-20 21:00] VITALS: BP 136/46
--- NOTE | 2021-05-20 23:15 | NUR ---
INITIAL ROUNDS COMPLETED AT 1915 HRS. PT AWAKE; DENIES ANY DISCOMFORT. PT ALERT ADN ORIENTED TO PERSON, PLACE, TIME AND SITUATION. GAIT EVEN AND STEADY. IV TO RFA SL. LUNGS CTA. PM MEDS GIVEN. PT CURRENTLY RESTING WITH EYES CLOSED. RESP EVEN AND REGULAR. CALL LIGHT WITHIN REACH.
--- NOTE | 2021-05-21 00:18 | NUR ---
PT RESTING WITH EYES CLOSED. RESP EVEN AND REGULAR. CALL LIGHT WITHIN REACH.
[2021-05-21 01:38] VITALS: BP 147/56
--- NOTE | 2021-05-21 02:18 | NUR ---
PT RESTING WITH EYES CLOSED. RESP EVEN AND REGULAR. CALL LIGHT WITHIN REACH.
--- NOTE | 2021-05-21 04:06 | NUR ---
PT RESTING WITH EYES CLOSED. RESP EVEN AND REGULAR. CALL LIGHT WITHIN REACH.
--- NOTE | 2021-05-21 06:15 | NUR ---
VSS THROUGHOUT NIGHT. PT RESTED WELL DURING SHIFT. NEEDS MET; WILL CONTINUE TO MONITOR.
[2021-05-21 06:17] VITALS: BP 156/64
[2021-05-21 07:05] LABS: BASOPHILS 0 % (0-2); EOSINOPHILS 3.1 % (0-7); HEMATOCRIT 32.7 % (36.0-48.0); HEMOGLOBIN 10.7 g/dL (12-16); MCH 32.1 pg (26.0-34.0); MCHC 32.8 g/dL (31.0-37.0); MCV 97.8 fL (80.0-100.0); MONOCYTES 10.5 % (2-11); NEUTROPHILS 59.4 % (40-80); PLATELET COUNT 197 10x3/uL (130-400); RBC 3.35 10x6/uL (4.00-5.40); RDW 16.5 % (11.5-14.5); WBC 4.7 10x3/uL (4.8-10.8)
[2021-05-21 07:14] LABS: ALBUMIN 3.2 g/dL (3.4-5.0); ANION GAP 12.8 mmol/L (8-16); BILIRUBIN - TOTAL 0.28 mg/dL (0.2-1.3); CALCIUM 8.5 mg/dL (8.5-10.1); CARBON DIOXIDE 25.9 mmol/L (21.0-32.0); CREATININE - SERUM 1.4 mg/dL (0.6-1.3); MAGNESIUM - SERUM 1.8 mg/dL (1.8-2.4); POTASSIUM - SERUM 4.7 mmol/L (3.5-5.1); PROTEIN - SERUM 6.1 g/dL (6.4-8.2)
--- NOTE | 2021-05-21 07:20 | NUR ---
RECIEVE REPORT. ALERT AND ORIENTED X3. UP AMBULATING IN [place]. NO SIGNS OF DISTRESS. CONTINUE PLAN OF CARE AND SAFETY PRECAUTIONS.
[2021-05-21 07:45] VITALS: BP 158/60
[2021-05-21 11:00] VITALS: BP 151/53
--- NOTE | 2021-05-21 11:44 | NUR ---
Nutrition Reassessment/Follow-up: Eating well. Diet: Low Sodium PO intake: 95% avg x 4 meals No new wt; last wt: 108# (05/12) Labs noted: BUN 31, Cre 1.4, GFR 39, Alb 3.2 Meds noted: Carafate, Megace, vit D, Protonix -Nutrition needs, Dx, & goals unchanged since initial assessment. -Need new wt. -RD will follow up within 4-7 days.
--- NOTE | 2021-05-21 13:47 | NUR ---
WALKED 250FT MIN ASSIT USED GT BELT
[2021-05-21] MEDS ORDERED: LISINOPRIL10 MG PO (14:31)
[2021-05-21] MEDS ORDERED: ARMOUR THYROID30 MG PO (14:32)
[2021-05-21 15:55] VITALS: BP 146/60
[2021-05-21 20:07] VITALS: BP 158/58
[2021-05-22 00:25] VITALS: BP 163/57
--- NOTE | 2021-05-22 01:22 | NUR ---
I have reviewed this patient and I concur with the Shift Assessment completed by the Licensed Practical Nurse today this shift.
--- NOTE | 2021-05-22 02:12 | NUR ---
RESTING WITH EYES CLOSED, NO S/S DISTRESS NOTED.
[2021-05-22 06:27] LABS: BASOPHILS 0.9 % (0-2); EOSINOPHILS 2.9 % (0-7); HEMATOCRIT 35.2 % (36.0-48.0); HEMOGLOBIN 11.5 g/dL (12-16); LYMPHOCYTES 27.3 % (15-50); MCH 32.7 pg (26.0-34.0); MCHC 32.6 g/dL (31.0-37.0); MEAN PLATELET VOLUME 7.8 fL (7.4-10.4); MONOCYTES 11.2 % (2-11); NEUTROPHILS 57.7 % (40-80); PLATELET COUNT 217 10x3/uL (130-400); RBC 3.51 10x6/uL (4.00-5.40); RDW 16.3 % (11.5-14.5); WBC 4.6 10x3/uL (4.8-10.8)
[2021-05-22 06:32] LABS: ALBUMIN 3.3 g/dL (3.4-5.0); ANION GAP 10.7 mmol/L (8-16); BILIRUBIN - TOTAL 0.25 mg/dL (0.2-1.3); CALCIUM 8.7 mg/dL (8.5-10.1); CARBON DIOXIDE 26.9 mmol/L (21.0-32.0); CREATININE - SERUM 1.7 mg/dL (0.6-1.3); MAGNESIUM - SERUM 1.9 mg/dL (1.8-2.4); POTASSIUM - SERUM 4.6 mmol/L (3.5-5.1); PROTEIN - SERUM 6.2 g/dL (6.4-8.2)
[2021-05-22 06:34] LABS: MCV 100.3 fL (80.0-100.0)
--- NOTE | 2021-05-22 10:00 | NUR ---
ALERT AND ORIENTED X4. SITTING UP IN BED. DC RT FA IV TIP INTACT. DISCHARGE INSTRUCTIONS GIVEN VERBALLY AND WRITTEN. DISCHARGE PAPERS SIGNED ON CHART. CAB ARRIVES FOR TRANSPORT. ESCORT TO RIDE VIA WHEELCHAIR. REMAINS FREE FROM INJURY.
[2021-05-22 10:14] VITALS: BP 155/65
--- NOTE | 2021-05-22 11:08 | MORECARE ---
CASE MANAGEMENT DISCHARGE SUMMARY PATIENT: ROB PICKENS UNIT: [id number] ADM DATE: 05/12/21 AGE: 75 : 43 SEX: F ROOM/BED: D.6756 AUTHOR: NOEL,DOC PHYSICIAN: REFERRING PHYSICIAN: RYAN YOUNG MD DATE OF SERVICE: 05/22/21 Case Management Discharge Planning Summary COMMENTS ENTERED DATE: 05/20/21 18:41 CT COMMENT TYPE: Discharge Planning REVIEWER: Brayan Colmenares CM attempted to speak to patient concerning DCP and needs. Patient is mildly confused and stated that CM should speak with her daughter. CM enlisted the help of patient's daughter (Dylan Ding) to reach the patient's son, Timothy Muñoz [phone] for DCP confirmation of patient's residence. Patient's daughter reports unsuccessful attempts at reaching her brother. Dylan stated that she may have to reach out to her cousin for help but stated that she and her mother cannot return to their previous residence. ENTERED DATE: 05/18/21 15:19 CT COMMENT TYPE: Discharge Planning REVIEWER: Leigh Smith CM WAS FINALLY ABLE TO REACH PATIENTS SON THROUGH HER DAUGHTER (DYLAN DING). AFTER MULTIPLE ATTEMPTS TO CALL SON (Chon) AT [phone] I HAD DYLAN CALL FROM HER PHONE AND HE ANSWERED. SON GAVE ADDRESS OF [facility] [address] ADDRESS THAT PATIENT IS BEING TAKEN TO. SON TIMOTHY MUÑOZ WAS INFORMED THAT PATIENT HAD BEEN READY FOR DISCHARGE SINCE WED 05/16/21 AND NEEDS TO BE PICKED UP TODAY. SON STATED THAT HE WAS IN [facility] AND COULD NOT BE HERE ANY SOONER THAN 05/20/21 AT NOON. SON AND DAUGTHER WERE INFORMED PER PROVIDER THAT APS WOULD BE CALLED AGAIN IF NOT PICKED UP. DCP REVIEW SUMMARY ANTICIPATED D/C DATE: EXPECTED LOS : CASE STATUS: DCP Initiated INITIAL REVIEW: 05/12/2021 INITIAL REVIEWER: Leigh Smith FINAL DISCHARGE DISPOSITION: : FINAL REVIEWER: FINAL REVIEW DATE: DCP Focus Questions & Answers QUESTION: ANSWER : PATIENT: ROB PICKENS ENCOUNTER: [id number] MEDICAL RECORD#: [id number] ADMISSION DATE: 05/12/2021 DISCHARGE DATE: 05/22/2021 ATTENDING MD: TIM: AGE: 75 MARITAL STATUS: W DC PLAN ID: [id number] FACILITY: [facility] PRINTED ON: 05/22/21 11:08 CT All edits/amendments must be made on the electronic document DICTATION DATE: 05/22/218 RECORDER OF DEEDS: LAUREN 05/22/21 1108 RPT#: [id number] DC DATE:05/22/21 STATUS: DIS IN [facility] [address] [place] [address] END OF REPORT
--- NOTE | 2021-05-22 14:18 | MORECARE ---
CASE MANAGEMENT DISCHARGE SUMMARY PATIENT: ROB PICKENS UNIT: [id number] ADM DATE: 05/12/21 AGE: 75 : 43 SEX: F ROOM/BED: D.8916 AUTHOR: NOEL,DOC PHYSICIAN: REFERRING PHYSICIAN: RYAN YOUNG MD DATE OF SERVICE: 05/22/21 Case Management Discharge Planning Summary COMMENTS ENTERED DATE: 05/20/21 18:41 CT COMMENT TYPE: Discharge Planning REVIEWER: Brayan Colmenares CM attempted to speak to patient concerning DCP and needs. Patient is mildly confused and stated that CM should speak with her daughter. CM enlisted the help of patient's daughter (Dylan Ding) to reach the patient's son, Timothy Muñoz [phone] for DCP confirmation of patient's residence. Patient's daughter reports unsuccessful attempts at reaching her brother. Dylan stated that she may have to reach out to her cousin for help but stated that she and her mother cannot return to their previous residence. ENTERED DATE: 05/18/21 15:19 CT COMMENT TYPE: Discharge Planning REVIEWER: Leigh Smith CM WAS FINALLY ABLE TO REACH PATIENTS SON THROUGH HER DAUGHTER (DYLAN DING). AFTER MULTIPLE ATTEMPTS TO CALL SON (Chon) AT [phone] I HAD DYLAN CALL FROM HER PHONE AND HE ANSWERED. SON GAVE ADDRESS OF [facility] [address] ADDRESS THAT PATIENT IS BEING TAKEN TO. SON TIMOTHY MUÑOZ WAS INFORMED THAT PATIENT HAD BEEN READY FOR DISCHARGE SINCE WED 05/16/21 AND NEEDS TO BE PICKED UP TODAY. SON STATED THAT HE WAS IN [facility] AND COULD NOT BE HERE ANY SOONER THAN 05/20/21 AT NOON. SON AND DAUGTHER WERE INFORMED PER PROVIDER THAT APS WOULD BE CALLED AGAIN IF NOT PICKED UP. DCP REVIEW SUMMARY ANTICIPATED D/C DATE: 05/22/2021 EXPECTED LOS : 10 CASE STATUS: DCP Initiated INITIAL REVIEW: 05/12/2021 INITIAL REVIEWER: Leigh Smith FINAL DISCHARGE DISPOSITION: : FINAL REVIEWER: FINAL REVIEW DATE: DCP Focus Questions & Answers QUESTION: ANSWER : PATIENT: ROB PICKENS ENCOUNTER: [id number] MEDICAL RECORD#: [id number] ADMISSION DATE: 05/12/2021 DISCHARGE DATE: 05/22/2021 ATTENDING MD: TIM: AGE: 75 MARITAL STATUS: W DC PLAN ID: [id number] FACILITY: [facility] PRINTED ON: 05/22/21 14:18 CT All edits/amendments must be made on the electronic document DICTATION DATE: 05/22/211417 DIRECTOR OF QUALITY CONTROL: LAUREN 05/22/21 141 RPT#: [id number] DC DATE:05/22/21 STATUS: DIS IN [facility] [address] [place] [address] END OF REPORT
--- NOTE | 2021-05-22 14:33 | MORECARE ---
CASE MANAGEMENT DISCHARGE SUMMARY PATIENT: ROB PICKENS UNIT: [id number] ADM DATE: 05/12/21 AGE: 75 : 43 SEX: F ROOM/BED: D.2136 AUTHOR: NOEL,DOC PHYSICIAN: REFERRING PHYSICIAN: RYAN YOUNG MD DATE OF SERVICE: 05/22/21 Case Management Discharge Planning Summary COMMENTS ENTERED DATE: 05/22/21 14:16 CT COMMENT TYPE: Discharge Planning REVIEWER: Leigh Smith Cm has been trying to communicate with patients son to arrange transport home since 05/16. Son Oscar Muñoz ([phone]) agreed to pick patient up on 04/20/21 @ noon, but did not show up at the hospital. CM spoke to patients daughter (who is also a patient) and was told that her brother Timothy Muñoz was picking she and her mother up at 2100 on 04/21/21. CM arrived this am to learn that neither of them were picked up last evening and remain in the hospital. Dalia Patel CM Director, informed CM that patient was to be sent to address on file and APS contacted of discharge. Taxi voucher provided for both discharged patients. Pt daughter (Dylan Ding) assured CM that she was going to gather their belongings and go to her brother house. ENTERED DATE: 05/20/21 18:41 CT COMMENT TYPE: Discharge Planning REVIEWER: Brayan Colmenares CM attempted to speak to patient concerning DCP and needs. Patient is mildly confused and stated that CM should speak with her daughter. CM enlisted the help of patient's daughter (Dylan Ding) to reach the patient's son, Timothy Muñoz [phone] for DCP confirmation of patient's residence. Patient's daughter reports unsuccessful attempts at reaching her brother. Dylan stated that she may have to reach out to her cousin for help but stated that she and her mother cannot return to their previous residence. ENTERED DATE: 05/18/21 15:19 CT COMMENT TYPE: Discharge Planning REVIEWER: Leigh Smith CM WAS FINALLY ABLE TO REACH PATIENTS SON THROUGH HER DAUGHTER (DYLAN DING). AFTER MULTIPLE ATTEMPTS TO CALL SON (Chon) AT [phone] I HAD DYLAN CALL FROM HER PHONE AND HE ANSWERED. SON GAVE ADDRESS OF [address] ADDRESS THAT PATIENT IS BEING TAKEN TO. SON TIMOTHY MUÑOZ WAS INFORMED THAT PATIENT HAD BEEN READY FOR DISCHARGE SINCE WED 05/16/21 AND NEEDS TO BE PICKED UP TODAY. SON STATED THAT HE WAS IN [facility] AND COULD NOT BE HERE ANY SOONER THAN 05/20/21 AT NOON. SON AND DAUGTHER WERE INFORMED PER PROVIDER THAT APS WOULD BE CALLED AGAIN IF NOT PICKED UP. DCP REVIEW SUMMARY ANTICIPATED D/C DATE: 05/22/2021 EXPECTED LOS : 10 CASE STATUS: DCP Initiated INITIAL REVIEW: 05/12/2021 INITIAL REVIEWER: Leigh Smith FINAL DISCHARGE DISPOSITION: : FINAL REVIEWER: FINAL REVIEW DATE: DCP Focus Questions & Answers QUESTION: ANSWER : PATIENT: ROB PICKENS ENCOUNTER: [id number] MEDICAL RECORD#: [id number] ADMISSION DATE: 05/12/2021 DISCHARGE DATE: 05/22/2021 ATTENDING MD: TIM: 1945- AGE: 75 MARITAL STATUS: W DC PLAN ID: [id number] FACILITY: [facility] PRINTED ON: 05/22/21 14:33 CT All edits/amendments must be made on the electronic document DICTATION DATE: 05/22/21 143 PIANO MAKER: LAUREN 05/22/21 1433 RPT#: [id number] DC DATE:05/22/21 STATUS: DIS IN [facility] [address] [address] END OF REPORT
--- NOTE | 2021-05-22 15:53 | MORECARE ---
CASE MANAGEMENT DISCHARGE SUMMARY PATIENT: ROB PICKENS UNIT: [id number] ADM DATE: 05/12/21 AGE: 75 : 43 SEX: F ROOM/BED: D.2136 AUTHOR: NOEL,DOC PHYSICIAN: REFERRING PHYSICIAN: RYAN YOUNG MD DATE OF SERVICE: 05/22/21 Case Management Discharge Planning Summary COMMENTS ENTERED DATE: 05/22/21 14:16 CT COMMENT TYPE: Discharge Planning REVIEWER: Leigh Smith Cm has been trying to communicate with patients son to arrange transport home since 05/16. Son Oscar Muñoz ([phone]) agreed to pick patient up on 04/20/21 @ noon, but did not show up at the hospital. CM spoke to patients daughter (who is also a patient) and was told that her brother Timothy Muñoz was picking she and her mother up at 2100 on 04/21/21. CM arrived this am to learn that neither of them were picked up last evening and remain in the hospital. Dalia Patel CM Director, informed CM that patient was to be sent to address on file and APS contacted of discharge. Taxi voucher provided for both discharged patients. Pt daughter (Dylan Ding) assured CM that she was going to gather their belongings and go to her brother house. Appended by Isha Yun on 05/22/2021 15:52 CDT: Klarissa with APS called and stated that she will follow up with patient. Oscar Muñoz's number [phone] and address [facility] [address] was given verbally to Klarissa and she requested discharge medication and records CM will fax records to [phone] Attn: Klarissa LAURA. ENTERED DATE: 05/20/21 18:41 CT COMMENT TYPE: Discharge Planning REVIEWER: Brayan Colmenares CM attempted to speak to patient concerning DCP and needs. Patient is mildly confused and stated that CM should speak with her daughter. CM enlisted the help of patient's daughter (Dylan Ding) to reach the patient's son, Timothy Muñoz [phone] for DCP confirmation of patient's residence. Patient's daughter reports unsuccessful attempts at reaching her brother. Dylan stated that she may have to reach out to her cousin for help but stated that she and her mother cannot return to their previous residence. ENTERED DATE: 05/18/21 15:19 CT COMMENT TYPE: Discharge Planning REVIEWER: Leigh Smith CM WAS FINALLY ABLE TO REACH PATIENTS SON THROUGH HER DAUGHTER (DYLAN DING). AFTER MULTIPLE ATTEMPTS TO CALL SON (Chon) AT [phone] I HAD DYLAN CALL FROM HER PHONE AND HE ANSWERED. SON GAVE ADDRESS OF [facility] [address] ADDRESS THAT PATIENT IS BEING TAKEN TO. SON TIMOTHY MUÑOZ WAS INFORMED THAT PATIENT HAD BEEN READY FOR DISCHARGE SINCE WED 05/16/21 AND NEEDS TO BE PICKED UP TODAY. SON STATED THAT HE WAS IN [facility] AND COULD NOT BE HERE ANY SOONER THAN 05/20/21 AT NOON. SON AND DAUGTHER WERE INFORMED PER PROVIDER THAT APS WOULD BE CALLED AGAIN IF NOT PICKED UP. [facility] REVIEW SUMMARY ANTICIPATED D/C DATE: 05/22/2021 EXPECTED LOS : 10 CASE STATUS: DCP Initiated INITIAL REVIEW: 05/12/2021 INITIAL REVIEWER: Leigh Smith FINAL DISCHARGE DISPOSITION: : FINAL REVIEWER: FINAL REVIEW DATE: UTP Focus Questions & Answers QUESTION: ANSWER : PATIENT: ROB PICKENS ENCOUNTER: [id number] MEDICAL RECORD#: [id number] ADMISSION DATE: 05/12/2021 DISCHARGE DATE: 05/22/2021 ATTENDING MD: TIM: AGE: 75 MARITAL STATUS: W DC PLAN ID: [id number] FACILITY: [facility] PRINTED ON: 05/22/21 15:53 CT All edits/amendments must be made on the electronic document DICTATION DATE: 05/22/211552 COMPUTERIZED MILL RECORDER: LAUREN 05/22/21 155 RPT#: [id number] DC DATE:05/22/21 STATUS: DIS IN [facility] [address] [place] [address] END OF REPORT
== END 2021-05-22 09:30 | disposition home or self-care (01) ==
LOC: D.ER 19:14 → D.M2 21:25 → D.EDHOLD 21:25 → D.M2 21:25 → OBSVTIME 05-13 18:19 → D.M2 05-22 09:30
PROVIDERS: Family Medicine; ADMIT Family Medicine; ATTEND Family Medicine
DX: R62.7 Adult failure to thrive (principal); Z68.1 Body mass index [BMI] 19.9 or less, adult; E87.0 Hyperosmolality and hypernatremia; E03.9 Hypothyroidism, unspecified; G93.41 Metabolic encephalopathy; M19.90 Unspecified osteoarthritis, unspecified site; Z86.73 Personal history of transient ischemic attack (TIA), and cerebral infarction without residual deficits; G43.909 Migraine, unspecified, not intractable, without status migrainosus; K21.9 Gastro-esophageal reflux disease without esophagitis